=== PATIENT | female | born 1970 | race American Indian/Alaskan Native ===

== ENCOUNTER 2018-02-27 11:58 | Inpatient (IN) | payer SELFPAY ==
[2018-02-27] MEDS ORDERED: ASPIRIN PO ONE (12:08)
[2018-02-27] MEDS ORDERED: NITROSTAT SL ONE ×2 (12:15→12:30)
[2018-02-27] MEDS ORDERED: ZOFRAN IV ONE (12:42)
[2018-02-27] MEDS ORDERED: NORCO 5/325 PO ONE (12:42)
[2018-02-27 12:43] LABS: Basophils % (Auto) 0.6 % (0.0-1.8); Eosinophils % (Auto) 0.5 % (0.0-4.3); Hematocrit 32.9 % (30.3-42.9); Hemoglobin 10.4 gm/dl (10.1-14.3); Lymphocytes # (Auto) 1.9 K/mm3 (1.2-5.4); Lymphocytes % (Auto) 40.6 % (13.4-35.0); Mean Corpuscular HGB Conc 32 % (30-34); Mean Corpuscular Hemoglobin 27 pg (28-32); Mean Corpuscular Volume 84 fl (79-97); Monocytes # (Auto) 0.3 K/mm3 (0.0-0.8); Monocytes % (Auto) 6.1 % (0.0-7.3); Platelet Count 174 K/mm3 (140-440); Red Blood Count 3.93 M/mm3 (3.65-5.03); Red Cell Distribution Width 17.6 % (13.2-15.2)
--- NOTE | 2018-02-27 12:47 | Emergency Department Report ---
HPI - General Chief Complaint: Chest Pain Time Seen by Provider: 02/27/18 12:34 - HPI HPI: Room 26 The patient is a 47-year-old female presenting with chief complaint of chest pain. The patient states her symptoms began this morning after coming indoors from smoking. The patient states she began feeling lightheaded and then became diaphoretic. Patient states she developed sharp and heavy chest pain rating to the left shoulder associated with shortness of breath, diaphoresis and nausea. Patient denies vomiting. The patient currently gets her pain is score of 8/10. The patient states her last stress test occurred June 2017 last cardiac catheterization occurred over 5 years ago Location: [See above] Duration: [See above] Quality: Sharp, heaviness Severity: 8/10 Modifying factors: [see above] Context: [see above] Mode of transportation: [not driving] ED Past Medical Hx - Past Medical History Previous Medical History?: Yes Hx Heart Attack/AMI: Yes (x2) Hx Congestive Heart Failure: Yes - Surgical History Past Surgical History?: No - Family History Family history: no significant - Social History Smoking Status: Current Every Day Smoker (1/2 pack per day) Substance Use Type: None (denies illicit drug use) - Medications Home Medications: Home Medications Medication Instructions Recorded Confirmed Last Taken Type No Known Home Medications [No 02/27/18 02/27/18 Unknown History Reported Home Medications] ED Review of Systems ROS: Stated complaint: CHEST PAIN Other details as noted in HPI Comment: All other systems reviewed and negative Constitutional: diaphoresis Respiratory: shortness of breath Cardiovascular: chest pain Gastrointestinal: nausea. denies: vomiting Neurological: other (dizziness) Physical Exam - Physical Exam Vital Signs: Vital Signs 02/27/18 11:59 Temperature 99.1 F Pulse Rate 72 Respiratory 16 Rate Blood Pressure 99/57 O2 Sat by Pulse 100 Oximetry Physical Exam: GENERAL: The patient is well-developed well-nourished female lying on stretcher not appearing to be in acute distress. [] HEENT: Normocephalic. Atraumatic. Extraocular motions are intact. Patient has moist mucous membranes. NECK: Supple. Trachea midline CHEST/LUNGS: Clear to auscultation. There is no respiratory distress noted. HEART/CARDIOVASCULAR: Regular. There is no tachycardia. There is no gallop rub or murmur. ABDOMEN: Abdomen is soft, nontender. Patient has normal bowel sounds. There is no abdominal distention. SKIN: There is no rash. There is no edema. There is no diaphoresis. NEURO: The patient is awake, alert, and oriented. The patient is cooperative. The patient has normal speech MUSCULOSKELETAL: There is no evidence of acute injury. ED Course Vital Signs 02/27/18 11:59 Temperature 99.1 F Pulse Rate 72 Respiratory 16 Rate Blood Pressure 99/57 O2 Sat by Pulse 100 Oximetry ED Medical Decision Making - Lab Data Result diagrams: 02/27/18 12:27 02/27/18 12:27 Laboratory Tests 02/27/18 02/27/18 02/27/18 12:27 12:27 12:27 WBC 4.7 RBC 3.93 Hgb 10.4 Hct 32.9 MCV 84 MCH 27 L MCHC 32 RDW 17.6 H Plt Count 174 Lymph % (Auto) 40.6 H [place] % (Auto) 6.1 Eos % (Auto) 0.5 Baso % (Auto) 0.6 Lymph # 1.9 [place]ane # 0.3 Eos # 0.0 Baso # 0.0 Seg Neutrophils % 52.2 Seg Neutrophils # 2.4 Sodium 139 Potassium 3.7 Chloride 103.7 Carbon Dioxide 25 Anion Gap 14 BUN 13 Creatinine 0.6 L Estimated GFR > 60 BUN/Creatinine Ratio 22 Glucose 86 Calcium 9.2 Troponin T < 0.010 HCG, Qual Negative - EKG Data -: EKG Interpreted by Me EKG shows normal: sinus rhythm Rate: normal - EKG Data When compared to previous EKG there are: previous EKG unavailable Interpretation: normal EKG - Radiology Data Radiology results: image reviewed (chest x-ray) interpreted by me: Chest x-ray- no focal infiltrates, no pneumothorax - Differential Diagnosis ACS, GERD, pericarditis Critical care attestation.: If time is entered above; I have spent that time in minutes in the direct care of this critically ill patient, excluding procedure time. ED Disposition Clinical Impression: Chest pain Disposition: OP ADMIT IP TO THIS HOSP Is pt being admited?: Yes Does the pt Need Aspirin: Yes Condition: Fair Instructions: Chest Pain (ED) Time of Disposition: 13:31 (hospitalist notified (Dr Dillard))
[2018-02-27 12:56] LABS: BUN/Creatinine Ratio 22; Blood Urea Nitrogen 13 mg/dL (7-17); Calcium 9.2 mg/dL (8.4-10.2); Hemolysis Index 5
--- NOTE | 2018-02-27 14:39 | XRay Report ---
CHEST ONE VIEW INDICATION: Chest pain. COMPARISON: None similar at this institution. FINDINGS: Portable, single, frontal chest radiograph demonstrates normal cardiomediastinal silhouette. Clear lungs. Unremarkable bones. Extrinsic EKG leads. CONCLUSION: No acute disease in the chest. Thank you for the opportunity to participate in this patient's care.
--- NOTE | 2018-02-27 17:58 | History and Physical Report ---
History of Present Illness Date of examination: 02/27/18 Date of admission: 02/27/18 14:08 Chief complaint: Chief complaint: Left-sided chest pain since a.m. associated with nausea and diaphoresis. History of present illness: MIKAL: 47-year-old -Citizen Of [place] female with history of coronary artery disease congestive heart failure and a cardiac cath 5 years ago comes in for left- sided chest pain since this morning. Pain radiating to the left shoulder. Associated with some nausea, diaphoresis and dizziness and shortness of breath. Also palpitations as per the patient. Patient apparently had a stress test in June 2017. States it was negative. Patient is still a smoker half a pack a day. Pain is about 5 on a scale of 1-10. No exacerbating or relieving factors. No recent travel Past Medical History Previous Medical History?: Yes Hx Heart Attack/AMI: Yes (x2) Hx Congestive Heart Failure: Yes Surgical History Past Surgical History?: No Family History Family history: no significant Social History Smoking Status: Current Every Day Smoker (1/2 pack per day) Substance Use Type: None (denies illicit drug use) -Medications Home Medications: Home Medications Medication Instructions Recorded Confirmed Last Taken Type No Known Home Medications [No 02/27/18 02/27/18 Unknown History Reported Home Medications] Medications and Allergies Allergies Allergy/AdvReac Type Severity Reaction Status Date / Time No Known Allergies Allergy Verified 02/27/18 12:17 Home Medications Medication Instructions Recorded Confirmed Last Taken Type No Known Home Medications [No 02/27/18 02/27/18 Unknown History Reported Home Medications] Review of Systems All systems: negative Constitutional: no weight loss, no weight gain, no fever, no chills, no sweats, no night sweats Ears, nose, mouth and throat: no sore throat, no swelling in mouth, no swelling in throat, no odynophagia Breasts: deferred Cardiovascular: chest pain, palpitations, lightheadedness, shortness of breath, high blood pressure, no orthopnea, no rapid/irregular heart beat, no edema, no dyspnea on exertion, no paroxysmal nocturnal dyspnea, no claudication, no phlebitis, no leg edema, no decreased exercise tolerance, no other Respiratory: no cough, no cough with sputum, no excessive sputum, no hemoptysis , no shortness of breath, no dyspnea on exertion Gastrointestinal: nausea, no abdominal pain, no vomiting, no diarrhea, no constipation, no change in bowel habits, no hematemesis, no coffee ground emesis Genitourinary Female: no menorrhagia, no dysuria, no urinary frequency, no urgency, no stress incontinence, no post void dribbling Rectal: no pain Musculoskeletal: no neck stiffness, no neck pain, no shooting arm pain, no arm numbness/tingling, no low back pain, no shooting leg pain, no leg numbness/ tingling, no redness of joints Integumentary: no rash, no pruritis, no redness, no sores Neurological: no seizures, no syncope Psychiatric: no anxiety, no memory loss, no change in sleep habits, no sleep disturbances, no insomnia, no hypersomnia, no change in appetite, no change in libido, no suicidal ideation, no disorientation, no hallucinations Endocrine: no cold intolerance, no heat intolerance, no polyphagia, no excessive thirst, no polydipsia, no polyuria, no nocturia, no excessive sweating , no flushing, no weight change Hematologic/Lymphatic: no easy bruising, no easy bleeding Allergic/Immunologic: no urticaria, no allergic rhinitis, no wheezing Exam - Physical Exam Narrative exam: Lying in bed comfortably. In no distress - Constitutional Vitals: Temp Pulse Resp BP Pulse Ox 99.1 F 63 13 100/63 100 02/27/18 11:59 02/27/18 14:16 02/27/18 14:16 02/27/18 14:16 02/27/18 14:16 General appearance: Present: no acute distress, well-nourished - EENT Eyes: Present: PERRL ENT: hearing intact, clear oral mucosa - Neck Neck: Present: supple, normal ROM - Respiratory Respiratory effort: normal Respiratory: bilateral: CTA - Cardiovascular Heart rate: 64 Rhythm: regular Heart Sounds: Present: S1 & S2. Absent: rub, click - Extremities Extremities: pulses symmetrical, No edema Peripheral Pulses: within normal limits - Abdominal General gastrointestinal: Present: soft, non-tender, non-distended, normal bowel sounds Female genitourinary: Present: normal - Rectal Rectal Exam: deferred - Integumentary Integumentary: Present: clear, warm, dry - Musculoskeletal Musculoskeletal: gait normal, strength equal bilaterally - Psychiatric Psychiatric: appropriate mood/affect, intact judgment & insight - Neurologic Neurologic: CNII-XII intact, moves all extremities - Allied Health Allied health notes reviewed: nursing, case management Results - Labs CBC & Chem 7: 02/27/18 12:27 02/27/18 12: Labs: Laboratory Last Values WBC 4.7 K/mm3 (4.5-11.0) 02/27/18 12: RBC 3.93 M/mm3 (3.65-5.03) 02/27/18 12: Hgb 10.4 gm/dl (10.1-14.3) 02/27/18 12: Hct 32.9 % (30.3-42.9) 02/27/18 12: MCV 84 fl (79-97) 02/27/18 12: MCH 27 pg (28-32) L 02/27/18 12: MCHC 32 % (30-34) 02/27/18 12: RDW 17.6 % (13.2-15.2) H 02/27/18 12: Plt Count 174 K/mm3 (140-440) 02/27/18 12: Lymph % (Auto) 40.6 % (13.4-35.0) H 02/27/18 12: [place] % (Auto) 6.1 % (0.0-7.3) 02/27/18 12: Eos % (Auto) 0.5 % (0.0-4.3) 02/27/18 12: Baso % (Auto) 0.6 % (0.0-1.8) 02/27/18 12: Lymph # 1.9 K/mm3 (1.2-5.4) 02/27/18 12: [place] # 0.3 K/mm3 (0.0-0.8) 02/27/18 12: Eos # 0.0 K/mm3 (0.0-0.4) 02/27/18 12: Baso # 0.0 K/mm3 (0.0-0.1) 02/27/18 12: Seg Neutrophils % 52.2 % (40.0-70.0) 02/27/18 12: Seg Neutrophils # 2.4 K/mm3 (1.8-7.7) 02/27/18 12:27 Sodium 139 mmol/L (137-145) 02/27/18 12:27 Potassium 3.7 mmol/L (3.6-5.0) 02/27/18 12:27 Chloride 103.7 mmol/L (98-107) 02/27/18 12:27 Carbon Dioxide 25 mmol/L (22-30) 02/27/18 12:27 Anion Gap 14 mmol/L 02/27/18 12:27 BUN 13 mg/dL (7-17) 02/27/18 12:27 Creatinine 0.6 mg/dL (0.7-1.2) L 02/27/18 12:27 Estimated GFR > 60 ml/min 02/27/18 12:27 BUN/Creatinine Ratio 22 % 02/27/18 12:27 Glucose 86 mg/dL (65-100) 02/27/18 12:27 Calcium 9.2 mg/dL (8.4-10.2) 02/27/18 12:27 Troponin T < 0.010 ng/mL (0.00-0.029) 02/27/18 14:33 HCG, Qual Negative (Negative) 02/27/18 12:27 Short CBC 02/27/18 Range/Units 12:27 WBC 4.7 (4.5-11.0) K/mm3 Hgb 10.4 (10.1-14.3) gm/dl Hct 32.9 (30.3-42.9) % Plt Count 174 (140-440) K/mm3 BMP 02/27/18 12:27 Sodium 139 Potassium 3.7 Chloride 103.7 Carbon Dioxide 25 BUN 13 Creatinine 0.6 L Glucose 86 Calcium 9.2 Cardiac Enzymes 02/27/18 02/27/18 Range/Units 12:27 14:33 Troponin T < 0.010 < 0.010 (0.00-0.029) ng/mL - Imaging and Cardiology EKG: report reviewed (normal sinus rhythm. Heart rate of 64/m. No acute ST-T wave changes.) Chest x-ray: report reviewed (no acute findings) Assessment and Plan Advance Directives: Yes (full code) VTE prophylaxis?: Chemical Plan of care discussed with patient/family: Yes - Patient Problems (1) Acute coronary syndrome Current Visit: Yes Status: Acute Plan to address problem: Patient to get serial troponins and Lexiscan in the morning. Patient initiated on aspirin which she is to continue after discharge. Also stop smoking. Costochondritis and gastroesophageal reflux disease in the differential diagnosis. Patient may have GERD secondary to nicotine dependence. (2) GERD (gastroesophageal reflux disease) Current Visit: Yes Status: Chronic Qualifiers: Esophagitis presence: with esophagitis Qualified Code(s): K21.0 - Gastro- esophageal reflux disease with esophagitis Plan to address problem: Patient initiated on Protonix (3) Hypertension Current Visit: Yes Status: Chronic Qualifiers: Hypertension type: essential hypertension Qualified Code(s): I10 - Essential (primary) hypertension Plan to address problem: Patient's blood pressures have been normal and patient is not on any antihypertensives. We will monitor the blood pressure and initiate antihypertensives if necessary (4) Nicotine dependence Current Visit: Yes Status: Chronic Qualifiers: Nicotine product type: cigarettes Plan to address problem: Smoking cessation consult NicoDerm patch initiated (5) DVT prophylaxis Current Visit: Yes Status: Acute Plan to address problem: On heparin 5000 subcutaneous every 12
[2018-02-27] MEDS ORDERED: ZOFRAN IV PRN (18:13)
[2018-02-27] MEDS ORDERED: MORPHINE IV PRN (18:13)
[2018-02-27] MEDS ORDERED: TYLENOL PO PRN (18:13)
[2018-02-27] MEDS ORDERED: AMBIEN PO PRN (18:13)
[2018-02-27] MEDS ORDERED: PERCOCET 5/325 PO PRN (18:13)
[2018-02-27] MEDS ORDERED: SODIUM CHLORIDE FLUSH SYRINGE 10 ML IV PRN (18:13)
[2018-02-27] MEDS: PROTONIX PO SCH (18:55)
[2018-02-27] MEDS: HABITROL TD SCH (18:55)
[2018-02-27] MEDS: HEPARIN SUB-Q SCH (22:34)
[2018-02-27] MEDS: SODIUM CHLORIDE FLUSH SYRINGE 10 ML IV SCH (22:34)
[2018-02-28 01:23] LABS: HCG Qualitative,Urine Negative (Negative)
[2018-02-28 06:56] LABS: Hematocrit 33.8 % (30.3-42.9); Hemoglobin 10.8 gm/dl (10.1-14.3); Mean Corpuscular HGB Conc 32 % (30-34); Mean Corpuscular Hemoglobin 27 pg (28-32); Mean Corpuscular Volume 84 fl (79-97); Platelet Count 183 K/mm3 (140-440); Red Blood Count 4.05 M/mm3 (3.65-5.03); Red Cell Distribution Width 17.3 % (13.2-15.2)
[2018-02-28 07:53] LABS: Alanine Aminotransferase 14 units/L (7-56); Albumin 3.1 g/dL (3.9-5); BUN/Creatinine Ratio 22; Blood Urea Nitrogen 13 mg/dL (7-17); Calcium 8.6 mg/dL (8.4-10.2); Hemolysis Index 3
[2018-02-28] MEDS ORDERED: LEXISCAN IV ONE (08:17)
[2018-02-28 08:53] LABS: Basophils % (Manual) 0 % (0.0-1.8); Total Cells Counted 100
[2018-02-28 08:54] LABS: Platelet Estimate Consistent w Auto; RBC Morphology Normal
[2018-02-28] MEDS ORDERED: ASPIRIN PO SCH (10:00)
[2018-02-28] MEDS: HABITROL TD SCH (12:04)
[2018-02-28] MEDS: HEPARIN SUB-Q SCH (12:05)
[2018-02-28] MEDS: SODIUM CHLORIDE FLUSH SYRINGE 10 ML IV SCH (12:05)
--- NOTE | 2018-02-28 12:37 | Discharge Summary ---
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 Pain radiating to the left shoulder. Associated with some nausea, diaphoresis and dizziness and shortness of breath. Also palpitations as per the patient. Patient apparently had a stress test in June 2017. States it was negative. Patient is still a smoker half a pack a day. Pain is about 5 on a scale of 1-10. No exacerbating or relieving factors. Proceeded to stress test which was negative. Advised patient about tobacco cessation and also patient's low blood pressure precludes initiation of Coreg which the patient is requesting for I recommended the patient monitors her blood pressure. With her primary care physician for initiation if necessary.. Discharge diagnosis Atypical chest pain GERD HTN Hypotension on presentation Nicotine Dependance Disposition: - TO HOME OR SELFCARE Time spent for discharge: 35 mins Core Measure Documentation - Palliative Care Palliative Care/ Comfort Measures: Not Applicable - Core Measures Any of the following diagnoses?: none - VTE Discharge Requirements Deep Vein Thrombosis/Pulmonary Embolism Present on Admission: No Exam - Physical Exam Narrative exam: VITAL SIGNS: Reviewed. GENERAL: The patient appeared well nourished and normally developed. Vital signs as documented. HEAD: No signs of head trauma. EYES: Pupils are equal. Extraocular motions intact. EARS: Hearing grossly intact. MOUTH: Oropharynx is normal. NECK: No adenopathy, no JVD. CHEST: Chest with clear breath sounds bilaterally. No wheezes, rales, or rhonchi. CARDIAC: Regular rate and rhythm. S1 and S2, without murmurs, gallops, or rubs. VASCULAR: No Edema. Peripheral pulses normal and equal in all extremities. ABDOMEN: Soft, without detectable tenderness. No sign of distention. No rebound or guarding, and no masses palpated. Bowel Sounds normal. MUSCULOSKELETAL: Good range of motion of all major joints. Extremities without clubbing, cyanosis or edema. NEUROLOGIC EXAM: Alert and oriented x 3. No focal sensory or strength deficits. Speech normal. Follows commands. PSYCHIATRIC: Mood normal. SKIN: No rash or lesions. - Constitutional Vitals: Temp Pulse Resp BP Pulse Ox 97.6 F 70 16 111/43 100 02/28/18 05:21 02/28/18 05:21 02/28/18 05:21 02/28/18 05:21 02/28/18 05:21 Plan Activity: advance as tolerated, fall precautions Diet: low salt Special Instructions: record daily BP diary, smoking cessation Follow up with: PRIMARY CARE, [Primary Care Provider] - 7 Days Prescriptions: Aspirin [Aspirin TAB] 325 mg PO QDAY #30 tablet
[2018-02-28 13:09] VITALS: BP 113/63
[2018-02-28] MEDS: PROTONIX PO SCH (13:13)
--- NOTE | 2018-03-01 00:02 | Treadmill Report ---
THALLIUM STRESS TEST REPORT LEFT VENTRICLE: Left ventricular chamber size is within normal spread. Perfusion study demonstrates homogeneous uptake of the tracer in all segments, no significant perfusion defects identified. Gated analysis demonstrates normal left ventricular systolic function, ejection fraction of 56%. CONCLUSION: Normal myocardial perfusion study. JOB# [id number] CA/NTS
== END 2018-02-28 18:30 | disposition home or self-care (01) | DRG 313 ==
LOC: ED 11:58 → 4A 14:08
PROVIDERS: ADMIT Internal Medicine; ATTEND Internal Medicine
DX: R07.89 Other chest pain (principal); I25.10 Atherosclerotic heart disease of native coronary artery without angina pectoris; I50.9 Heart failure, unspecified; F17.200 Nicotine dependence, unspecified, uncomplicated; K21.9 Gastro-esophageal reflux disease without esophagitis; I11.0 Hypertensive heart disease with heart failure; I95.9 Hypotension, unspecified; I25.2 Old myocardial infarction; Z71.6 Tobacco abuse counseling
CPT/HCPCS: 36415; 71045; 78452; 80048; 80053; 81025; 83036; 84484; 84703; 85007; 85025; 93005; 93010; 93017; 96374; A9502; J1644; J2270; J2405; J2785